=== PATIENT | male | born 1985 | race Hispanic/Latino ===

== ENCOUNTER 2017-12-05 10:49 | Day surgery (SDC) | payer OTHER ==
[2017-12-04 15:57] VITALS: BMI 26.6
[~2017-12-05 10:49] MED LIST: Cyclopentolate 1% Opth Drop 2 ML BOT FS SCH; EPINEPHrine 0.3 MG in Ophthalmic Irrigation Solution 500 ML FS SCH; Phenylephrine 2.5% Ophth Soln 5 ML BOT FS SCH
[2017-12-05] MEDS ORDERED: Phenylephrine 2.5% Ophth Soln 5 ML BOT ONE (12:14)
[2017-12-05] MEDS ORDERED: Cyclopentolate 1% Opth Drop 2 ML BOT ONE (12:14)
[2017-12-05] MEDS ORDERED: Bupivacaine 0.75% 10 ML AMP ONE (13:12)
[2017-12-05] MEDS ORDERED: Maxitrol 0.1% Opth Oint 3.5 GM TUBE ONE (13:12)
[2017-12-05] MEDS ORDERED: Dexamethasone 20 MG/5 ML VIAL ONE (13:12)
[2017-12-05] MEDS ORDERED: Ondansetron HCl/PF 4 MG/2 ML Vial ONE (13:12)
[2017-12-05] MEDS ORDERED: Lidocaine 4% PF 5 ML AMP ONE (13:12)
[2017-12-05] MEDS ORDERED: CEFAZOLIN 1 GM VIAL ONE (13:12)
[2017-12-05] MEDS ORDERED: Triamcinolone 40 MG/ML VIAL ONE (13:12)
[2017-12-05] MEDS ORDERED: Lidocaine 1% PF 5 ML VIAL ONE (13:12)
[2017-12-05] MEDS ORDERED: PROPOFOL 200 MG/20 ML VIAL ONE (13:12)
[2017-12-05] MEDS ORDERED: Fentanyl 100 MCG/2 ML VIAL ONE (14:35)
--- NOTE | 2017-12-05 20:08 | OP ---
DATE OF SURGERY: 12/05/2017 PREOPERATIVE DIAGNOSIS: Aphakia, left eye. POSTOPERATIVE DIAGNOSIS: Aphakia, left eye. PROCEDURE PERFORMED: Secondary intraocular lens placement, left eye. SURGEON: Sami Coughlin M.D. ANESTHESIA: General endotracheal anesthesia. PROCEDURE IN DETAIL: The patient was identified in the preoperative holding area. Appropriate [facility] consent for the planned surgical procedure was obtained for the left eye. The patient was taken to the operative suite. General endotracheal anesthesia was initiated. The patient was prepped and draped in the usual sterile manner for ophthalmic surgery on the left eye. Lid speculum was placed i n the left eye. Superior nasal 3 mm scleral tunnel incision was created. A 22.5 diopter, RU1955 int raocular lens was folded and inserted into the eye and the haptics were externalized using the Yamane procedure. At the end of the case, the lens was noted to be centered and not tilted. Miochol was i nserted into the eye and only a modest amount of iris constriction was noted. Eye was noted to be st iff for at least 180 degrees. No iris repair procedure was possible at this time. The scleral tunne l was sutured closed with 7-0 Vicryl suture. Conjunctiva was closed with 6-0 plain gut suture. Retr obulbar Kenalog and subconjunctival Ancef were placed. Atropine and antibiotic ointment were placed, and the eye was patched and shielded. Patient was taken to the postoperative recovery unit in good condition having suffered no immediate perioperative complications. DISCHARGE INSTRUCTIONS: The patient was instructed to keep patch and shield on, avoid lifting or christo ding, and follow up in the morning with Dr. Coughlin.
== END 2017-12-05 17:45 | disposition home or self-care (01) ==
LOC: SDC 10:49
PROVIDERS: ATTEND Ophthalmology Retina Specialist
PROC: 08RK3JZ Replacement of Left Lens with Synthetic Substitute, Percutaneous Approach (ICD-10-PCS; principal; 2017-12-05)
DX: H27.02 Aphakia, left eye (principal); H21.562 Pupillary abnormality, left eye
CPT/HCPCS: C1780; J0171; J0690; J1100; J2001; J2405; J2704; J3010; J3301; J3490

== ENCOUNTER 2018-08-18 13:23 | Emergency (ER) | payer SELFPAY ==
[2018-08-18 14:03] LABS: #Basophils 0.1 thou/uL (0.0-0.2); #Eosinphils 0.6 thou/uL (0.0-0.7); #Lymphocytes 1.7 thou/uL (1.20-3.40); #Monocytes 0.6 thou/uL (0.11-0.59); #Neutrophils 4.1 thou/uL (1.40-6.50); %Basophils 1.1 % (0.0-1.0); %Eosinophils 8.9 % (0.0-10.0); %Lymphocytes 24.2 % (21.0-51.0); %Monocytes 7.9 % (0.0-10.0); %Neutrophils 57.9 % (42.0-75.0); Hemoglobin 15.1 g/dL (14.0-18.0); Mean Corpuscular Volume 94.2 fL (78.0-98.0); Mean Platelet Volume 7.3 fL (7.4-10.4); Platelet Count 326 thou/uL (130-400); RBC Distribution Width 11.6 % (11.5-14.5); Red Blood Cell (RBC) Count 4.73 mill/uL (4.70-6.10); White Blood Cell (WBC) Count 7.1 thou/uL (4.8-10.8)
--- NOTE | 2018-08-18 14:15 | RAD ---
Chest one view HISTORY: Chest pain. FINDINGS: Cardiac silhouette is magnified by projection. Pulmonary vasculature is unremarkable. Media stinum is midline. No lobar consolidation or evidence of pneumothorax. Cardiac lead overlies the chest. IMPRESSION: No active cardiopulmonary abnormalities are demonstrated.
[2018-08-18 14:24] LABS: ALT (SGPT) 14 U/L (8-55); AST (SGOT) 17 U/L (5-34); Albumin 4.8 g/dL (3.5-5.0); Alkaline Phosphatase 93 U/L (40-150); Anion Gap 13 mmol/L (10-20); BUN (Urea Nitrogen) 8 mg/dL (8.9-20.6); Bilirubin, Total 0.9 mg/dL (0.2-1.2); CK (CPK) 134 U/L (30-200); Calc. Creatinine Clearance 0 mL/min (70-130); Calcium 9.5 mg/dL (7.8-10.44); Carbon Dioxide 27 mmol/L (22-29); Chloride 103 mmol/L (98-107); Estimated GFR-MDRD Greater than 90; Globulin 2.9 g/dL (2.4-3.5); Glucose 117 mg/dL (70-105); Lipase 19 U/L (8-78); Potassium 3.6 mmol/L (3.5-5.1); Protein, Total 7.7 g/dL (6.0-8.3); Sodium 139 mmol/L (136-145)
[2018-08-18] MEDS ORDERED: Lidocaine Viscous Sol 2% 15 ml UD Cup ONE (15:06)
[2018-08-18] MEDS ORDERED: Mag-Al 1200 mg/1200 mg/30 ML UDCUP ONE (15:06)
== END 2018-08-18 16:00 | disposition home or self-care (01) ==
LOC: ERS 13:23
DX: R07.89 Other chest pain (principal); R10.13 Epigastric pain
CPT/HCPCS: 36415; 71045; 80053; 82550; 83690; 84484; 85025; 93005